=== PATIENT | female | born 1960 | race Caucasian/White ===

== ENCOUNTER 2017-05-01 18:50 | Emergency (ER) | payer OTHER ==
[~2017-05-01] VITALS: Ht 170.2 cm; Wt 101.0 kg
[~2017-05-01 18:50] MED LIST: DARV PO; MELO15TA2 PO; METR-1 PO; METR250 PO; Z.0.NO CURRENT MEDS
[2017-05-01 19:05] VITALS: BP 160/70; PULSE 98; RESP 20; TEMP 98.5; O2SAT 97
--- NOTE | 2017-05-01 19:22 | PD ---
HPI Chief Complaint: Respiratory Symptoms Time Seen by Provider: 19:22 Travel History International Travel<30 days: No Contact w/Intl Traveler<30days: No Traveled to known affect area: No History of Present Illness HPI History of cough for past 2 weeks. Patient was started on Zithromax and she has finished the course 1 week ago. She was also given at that time albuterol inhaler which she used for a few days and then has stopped. Patient says that she had started to feel better but since yesterday has started to feel achy and feverish again. The cough has started again. At home her temperature was 100 and she took one Advil before coming to the emergency room. Vital signs are stable here. Patient does not appear to be any significant distress but does seem anxious. She is not a smoker and does not have history of asthma or COPD. No known sick contacts. [facility] Past Medical History Narrative Medical list of her past medical, surgical, social and family history is reviewed from the nursing note. Anemia: Yes (HISTORY OF ANEMIA) Cardiovascular Problems: No Diminished Hearing: No Diverticulitis: Yes Genitourinary: No Headaches: Yes Musculoskeletal: No Neurologic: No Reproductive: Yes Respiratory: No : 3 Para: 2 Miscarriage: 1 : 0 Past Surgical History Abdominal Aneurysm Repair: Yes (HERNIA REPAIR 1962) Abdominal Surgery: Yes (1962,umbilical hernia) Cardiac Surgery: No Section: Yes (1997) Ear Surgery: No Endocrine Surgery: No Eye Surgery: No Gynecologic Surgery: Yes (D/C ) Hysterectomy: Yes (partial,ovaries remain) Oral Surgery: No Tonsillectomy: Yes Social History Alcohol Use: No Tobacco Use: No (quit 1999 or 2000) Substance Use: No Allergies-Medications (Allergen,Severity, Reaction): Coded Allergies: No Known Allergies (Verified Adverse Reaction, Unknown, 05/01/17) Comments No known drug allergies Reported Meds & Prescriptions Reported Meds & Active Scripts Active Levaquin (Levofloxacin) 500 Mg Tablet 500 Mg PO DAILY 10 Days Narrative Medication List of her home medications reviewed from the nursing note. Review of Systems Except as stated in HPI: all other systems reviewed are Neg General / Constitutional: Positive: Fever, Chills Respiratory: Positive: Cough Physical Exam Narrative GENERAL: Awake, alert, mild distress, anxious SKIN: Focused skin assessment warm/dry. HEAD: Atraumatic. Normocephalic. EYES: Pupils equal and round. No scleral icterus. No injection or drainage. ENT: No nasal bleeding or discharge. Mucous membranes pink and moist. NECK: Trachea midline. No JVD. CARDIOVASCULAR: Regular rate and rhythm. No murmur appreciated. RESPIRATORY: No accessory muscle use. Clear to auscultation. Breath sounds equal bilaterally. GASTROINTESTINAL: Abdomen soft, non-tender, nondistended. Hepatic and splenic margins not palpable. MUSCULOSKELETAL: No obvious deformities. No clubbing. No cyanosis. No edema. NEUROLOGICAL: Awake and alert. No obvious cranial nerve deficits. Motor grossly within normal limits. Normal speech. PSYCHIATRIC: Appropriate mood and affect; insight and judgment normal. Data Data Last Documented VS Vital Signs Date Time Temp Pulse Resp B/P (MAP) Pulse Ox O2 Delivery O2 Flow Rate FiO2 05/01/17 21:32 05/01/17 21:32 77 18 97 05/01/17 19:27 Room Air 05/01/17 19:05 98.5 Orders Orders Chest, Pa & Lat (05/01/17 ) Influenzae A/B Antigen (05/01/17 19:32) Levofloxacin (Levaquin) (05/01/17 20:30) Ed Discharge Order (05/01/17 20:20) MDM Medical Decision Making Medical Screen Exam Complete: Yes Emergency Medical Condition: Yes Medical Record Reviewed: Yes Differential Diagnosis Influenza, viral illness, pneumonia Narrative Course 8:22 PM rapid influenza was negative. Chest x-ray shows a right middle lobe and salivation as per the radiologist. I have given her a dose of Levaquin here and a prescription to go home with. I explained to her the current x-ray finding and she understands. Procedures EKG Prior to Arrival: No Diagnosis Primary Impression: Pneumonia Qualified Codes: J18.1 - Lobar pneumonia, unspecified organism Additional Instructions: Please return to the ER if the condition worsens or any other new concerns. Otherwise follow-up with your primary care. Take the medication as per the prescription direction. Please have your primary care get a repeat x-ray after the antibiotic course is finished. Med/Other Pt SpecificInfo: Prescription(s) given Scripts Levofloxacin (Levaquin) 500 Mg Tablet 500 MG PO DAILY for Infection for 10 Days, #10 TAB 0 Refills Prov: Lydia Roman MD 05/01/17 Disposition: 01 DISCHARGE HOME Condition: Stable Lydia Roman MD May 01, 2017 19:22
--- NOTE | 2017-05-01 20:12 | RADRPT ---
EXAM DATE/TIME: 05/01/2017 19:56 [facility] COMPARISON: No previous studies available for comparison. INDICATIONS : Bronchitis for 3 weeks, cough. MEDICAL HISTORY : None. SURGICAL HISTORY : None. ENCOUNTER: Subsequent ACUITY: 3 weeks PAIN SCORE: 0/10 LOCATION: Bilateral chest FINDINGS: Frontal and lateral views of the chest demonstrate a normal-sized cardiac silhouette. There is a mild airspace opacity in the right middle lobe, likely consolidation given the appearance. No pleural eff usion or pneumothorax is identified. The bones and soft tissues demonstrate no acute finding. CONCLUSION: Mild airspace consolidation in the right middle lobe likely representing an infectious process/pneumo toyin given the clinical history of cough. Suggest performing followup chest x-ray following appropriat e therapy to confirm resolution of this finding. Quincy Phoenix MD on May 01, 2017 at 20:10 Board Certified Radiologist. This report was verified electronically.
[2017-05-01] MEDS ORDERED: LEVA500T33 PO (20:18)
[2017-05-01] MEDS ORDERED: LEVOFLOXACIN 500 MG TAB PO ONE (20:30)
[2017-05-01 21:32] VITALS: BP 152/78
== END 2017-05-01 21:33 | disposition home or self-care (01) ==
LOC: PHED 18:50
DX: J18.1 Lobar pneumonia, unspecified organism (principal); Z86.2 Personal history of diseases of the blood and blood-forming organs and certain disorders involving the immune mechanism; Z87.19 Personal history of other diseases of the digestive system; Z87.42 Personal history of other diseases of the female genital tract
CPT/HCPCS: 71020; 87804; 99284